=== PATIENT | male | born 1995 | race Caucasian/White ===

== ENCOUNTER 2018-08-09 18:47 | Emergency (ER) | payer MEDICAID ==
[~2018-08-09] VITALS: Ht 180.3 cm; Wt 91.2 kg
[~2018-08-09 18:47] MED LIST: MOTRIN PRN FEVER
[2018-08-09 19:04] VITALS: BP 149/110
--- NOTE | 2018-08-09 19:10 | NUR ---
PT AMBULATES TO BED 5
--- NOTE | 2018-08-09 19:15 | NUR ---
PT PRESENTED ER WITH C/O PAIN TO THE ABDOMEN X 1 MONTH. PT HAS HAD N/V/D BUT DENIES FEVER.NO FEVER AT THIS TIME. PT IS HAVING EPIGASTRIC PAIN AND PAIN IN ABDOEMN IN GENERALIZED REGION. PT STATES IT IS STABBING, SHARP PAIN. BOWL SOUNDS ACTIVE IN ALL 4 Q.RADIATES TO BACK. PT HAS BEEN TAKING 5 TO 6 TYLENOL FOR PAIN WITH NO RELIEF. NKA AND NO PREVIOUS MEDICAL HX. PT IS A/O X 4. SKIN IS PINK/WARM/DRY; AAOX4 WITH EVEN AND STEADY GAIT; VSS; PATIENT POSITIONED FOR COMFORT; HOB ELEVATED; BEDRAILS UP X2; BED DOWN. ER MD MADE AWARE OF PT STATUS.
[2018-08-09] MEDS ORDERED: NACL 0.9% 1,000 ML IV ONE (19:54)
[2018-08-09] MEDS ORDERED: MORPHINE SULFATE 4 MG/ML SYR IVP ONE (19:55)
[2018-08-09] MEDS ORDERED: DICYCLOMINE HCL LIQUID 20 MG, ALUMINUM HYD/MAG/SIMETHICONE 30 ML, LIDOCAINE VISCOUS 2% ... PO ONE ×3 (19:55)
[2018-08-09] MEDS ORDERED: ONDANSETRON 4 MG/2 ML VIAL IVP ONE (19:55)
[2018-08-09 20:26] LABS: BARBITURATE, URINE NEG. ng/ml (NEG <=200); BENZODIAZEPINE, URINE NEG. ng/mL (NEG <=200); CANNABINOID, URINE POS. ng/mL (NEG <=50); COCAINE, URINE NEG. ng/mL (NEG <=300); OPIATE, URINE NEG. ng/mL (NEG <=2000); PHENCYCLIDINE SCREEN,URINE NEG. ng/mL (NEG <=25)
[2018-08-09 20:32] LABS: BASOPHILS % (AUTO) 0.3 % (0.0-2.0); EOSINOPHILS # (AUTO) 0.1 K/uL (0-0.4); EOSINOPHILS % (AUTO) 1.3 % (0.0-4.0); HEMATOCRIT 44.9 % (36-52); HEMOGLOBIN 15.2 g/dL (12.0-18.0); LYMPHOCYTES # (AUTO) 2.4 K/uL (2.0-11.5); LYMPHOCYTES % (AUTO) 35.7 % (20.5-51.1); MEAN CORPUSCULAR HEMOGLOBIN 32 pg (27-31); MEAN CORPUSCULAR HGB CONC 34 g/dL (33-37); MEAN CORPUSCULAR VOLUME 94.8 fL (80-94); MONOCYTES # (AUTO) 0.5 K/uL (0.8-1.0); MONOCYTES % (AUTO) 7.2 % (1.7-9.3); NEUTROPHILS # (AUTO) 3.7 K/uL (1.8-7.7); NEUTROPHILS % (AUTO) 55.5 % (42.2-75.2); PLATELET COUNT (AUTO) 211 K/uL (140-450); RED BLOOD CELL COUNT(AUTO) 4.74 MIL/uL (4.20-6.10); RED CELL DISTRIBUTION WIDTH 14.1 % (11.6-13.7); WHITE BLOOD COUNT (AUTO) 6.7 K/uL (4.8-10.8)
[2018-08-09 20:42] LABS: ANION GAP 10.6 (8-16); CHLORIDE 103 mmol/L (98-107); CREATININE 1.1 mg/dL (0.7-1.3); GFR ARICAN-AMERICAN 107 mL/min (>90); GLUCOSE 88 mg/dL (74-106); POTASSIUM 3.6 mmol/L (3.5-5.1); SODIUM SERUM 139 mmol/L (136-145); UREA NITROGEN, BLOOD 14 mg/dL (7-18)
[2018-08-09 20:46] LABS: ALBUMIN 3.9 g/dL (3.4-5.0); ASPARTATE AMINOTRANSFERASE 30 U/L (15-37); LIPASE 168 U/L (73-393); TOTAL BILIRUBIN 0.4 mg/dL (0.0-1.0)
--- NOTE | 2018-08-09 21:12 | NUR ---
PT SITTING UP IN BED, PAIN LEVEL IS 5/10 AT THIS TIME. PT HAD SOME RELIEF WITH PAIN MEDICATION. MADE AWARE.
[2018-08-09 21:30] VITALS: BP 115/63
--- NOTE | 2018-08-09 21:30 | NUR ---
Patient discharged with v/s stable. Written and verbal after care instructions given and explained. Patient alert, oriented and verbalized understanding of instructions. Ambulatory with steady gait. All questions addressed prior to discharge. ID band removed. Patient advised to follow up with PMD. Rx of ULTRAM, OMEPRAZOLE, MYLANTA WAS given. Patient educated on indication of medication including possible reaction and side effects. Opportunity to ask questions provided and answered.
== END 2018-08-09 21:30 | disposition home or self-care (01) ==
LOC: MED 18:47
DX: R10.13 Epigastric pain (principal); R19.7 Diarrhea, unspecified; R11.10 Vomiting, unspecified; F17.210 Nicotine dependence, cigarettes, uncomplicated; Z79.899 Other long term (current) drug therapy
CPT/HCPCS: 36415; 74176; 80053; 80305; 81002; 83690; 85025; 96361; 96374; 96375; 99285; G0482; J2270; J2405; J7030